=== PATIENT | male | born 1975 | race Hispanic/Latino ===

== ENCOUNTER 2022-09-28 13:10 | Outpatient (CLI) | payer OTHER | END 2022-09-28 13:11 | disposition home or self-care (01) | LOC: CT 13:10 | PROVIDERS: ATTEND Internal Medicine Nephrology | DX: N18.1 Chronic kidney disease, stage 1 (principal); N20.2 Calculus of kidney with calculus of ureter; Z87.442 Personal history of urinary calculi | CPT/HCPCS: 74176 ==